=== PATIENT | male | born 1930 | race Caucasian/White ===

== ENCOUNTER → 2018-01-02 | Outpatient (REF) | payer BC, MEDICARE ==
[2018-01-02 15:09] LABS: FERRITIN 33 NG/ML (26-388); IRON (FE) 99 UG/DL (65-175); PERCENT SATURATION 30.7 % (19.7-50.0); TOTAL IRON BINDING CAPACITY 322 UG/DL (250-450)
== END ==
LOC: M LAB REF 14:20
DX: D64.9 Anemia, unspecified (principal)
CPT/HCPCS: 83550